=== PATIENT | male | born 1995 | race African-American/Black ===

== ENCOUNTER 2017-05-03 18:07 | Emergency (ER) | payer MEDICAID ==
[2017-05-03 18:22] VITALS: RESP 16; TEMP 98.6; O2SAT 96
--- NOTE | 2017-05-03 18:44 | EDPHY ---
H & P Stated Complaint: lac to right arm--punched glass door HPI/ROS: CHIEF COMPLAINT: Right forearm laceration HISTORY OF PRESENT ILLNESS: Patient says that he was knocking on the window when he accidentally broke the window and his arm went through it. He pulled his arm back in sustained a laceration on the right forearm, volar, midshaft. This happened around 1 hour ago. Mildly painful. No numbness or tingling. No pulsatile blood flow described. No pain at rest. No injuries elsewhere. Uncertain when his last tetanus shot was. He denies that this was with any attempt to harm himself. No other associated complaints or modifying factors TIME OF INJURY: Less than 1 hour prior to arrival TETANUS STATUS: Uncertain REVIEW OF SYSTEMS: Ten systems reviewed and are negative unless otherwise noted in the HPI EXAMINATION General Appearance: Alert, no distress Head: normocephalic, atraumatic Cardiovascular: Pulses normal throughout. Symmetric radial pulses are 2+. Brisk cap refill all fingers of the right hand. Neurological: A&O, sensory symmetric, strength symmetric. No wrist drop. Skin: Warm and dry, no rash. There is a macerated laceration on the right forearm, anterior aspect. Difficult to fully visualize due to hematoma and clot around it. We will need to irrigate and reinspected. Extremities: Mild tenderness of the right forearm laceration. There is no bony tenderness of the right hand, wrist, elbow or shoulder. Neurovascular intact distal to the laceration DIFFERENTIAL DIAGNOSES: Including but not limited to laceration, complex laceration, laceration with foreign body, arterial injury MDM: 6:45 p.m. Laceration to the right forearm, volar. Will need to irrigate the wound better for better visualization inspection. Unable to determine if there is a foreign body at this time until we irrigate the wound and explore further. X-ray has been ordered to rule out fracture and foreign body. He is neurovascular intact in no acute distress without any signs of arterial injury at this time 7:20 p.m. Wound has been anesthetized and irrigated. On re-evaluation of the wound, this is a jagged laceration with minimal exposure of the subcutaneous tissue. No large foreign body appreciated. No pulsatile blood flow. He remains neurovascular intact distal to the injury. I will close the wound. 7:45 p.m. Wound has been closed with good approximation. This was a jagged, v-shaped laceration. No foreign body. Neurovascular intact post procedure. Daily wound care as discussed. Return here for suture removal in 7-10 days. Return sooner for signs of infection should that develop as we discussed. PROCEDURE: Laceration repair Consent: Verbal Location: Right forearm, volar Length of repair: 5 cm total Complexity: Complex Layer involvement: Single layer Anesthesia: Local, 1% lidocaine with epinephrine, 10 mL Irrigation: Extensive Debridement: Minimal Procedure description: Following good anesthesia, the wound was copiously irrigated. Wound bed was explored and there is no foreign body noted. Minimal excisional debridement of the macerated edges. Wound borders were approximated well with good hemostasis. Tolerated well without complication. Suture/Staple material: 4-0 Prolene, 12 simple interrupted sutures Wound care: Routine as discussed Suture/Staple removal: 7-10 Days SUTURE STAPLE REMOVAL: 7-10 days here ED Precautions: Worsening pain. Erythema, edema, cyanosis, pallor, paresthesia or anesthesia. SUPERVISION: This patient was independently evaluated without direct examination by the attending physician. Case was discussed with attending physician. Source: Patient Exam Limitations: No limitations - Personal History Current Tetanus/Diphtheria Vaccine: No Current Tetanus Diphtheria and Acellular Pertussis (TDAP): No - Medical/Surgical History Hx Asthma: No Hx Chronic Respiratory Disease: No Hx Diabetes: No Hx Cardiac Disease: No Hx Renal Disease: No Hx Cirrhosis: No Hx Alcoholism: No Hx HIV/AIDS: No Hx Splenectomy or Spleen Trauma: No Other PMH: denies - Social History Smoking Status: Current every day smoker Constitutional: Initial Vital Signs Temperature (C) 98.6 F 05/03/17 18:20 Heart Rate 82 05/03/17 18:20 Respiratory Rate 16 05/03/17 18:20 Blood Pressure 128/76 H 05/03/17 18:20 O2 Sat (%) 96 05/03/17 18:20 O2 Delivery Mode Room Air Allergies/Adverse Reactions: No Known Allergies Allergy (Unverified 05/03/17 18:19) Home Medications: Medication Instructions Recorded Amoxicillin/Clavulanate Pot 875 mg PO BID #14 tab 05/03/17 [Augmentin 875 MG TAB (*)] Medical Decision Making - Diagnostics Imaging Results: Imaging Impressions Forearm X-Ray 05/03/17 18:44 Impression: Gauze bandaging limits assessment of the soft tissues. There is an equivocal punctate opacity near the skin surface seen peripheral medially. Clinical correlation is suggested. Departure - Departure Disposition: Home, Routine, Self-Care Clinical Impression: Laceration of forearm without complication Qualifiers: Encounter type: initial encounter Laterality: right Qualified Code(s): S51.811A - Laceration without foreign body of right forearm, initial encounter Condition: Good Instructions: Care For Your Stitches (ED), Laceration (ED) Additional Instructions: Daily wound care as discussed. Return here in 7-10 days for suture removal. Keep the wound clean, dry and covered. Augmentin as prescribed. Return here for any redness, purulence, swelling or pain Referrals: NONE *PRIMARY CARE P,. [Primary Care Provider] - As per Instructions Yang Turner MD [Medical Doctor] - As per Instructions Prescriptions: Amoxicillin/Clavulanate Pot [Augmentin 875 MG TAB (*)] 875 mg PO BID #14 tab
[2017-05-03] MEDS ORDERED: AMOXICILLIN/CLAVULANATE POT 875/125 MG TAB PO ONE (19:47)
[2017-05-03] MEDS ORDERED: ONDANSETRON 4 MG/2 ML VIAL ONE (19:57)
[2017-05-03 19:59] VITALS: BP 121/73; PULSE 70
== END 2017-05-03 19:59 | disposition home or self-care (01) ==
LOC: EEVIPCON 18:07
PROC: 0HQDXZZ Repair Right Lower Arm Skin, External Approach (ICD-10-PCS; principal; 2017-05-03)
DX: S51.811A Laceration without foreign body of right forearm, initial encounter (principal); F17.200 Nicotine dependence, unspecified, uncomplicated; W22.8XXA Striking against or struck by other objects, initial encounter; Y99.8 Other external cause status; Y93.89 Activity, other specified
CPT/HCPCS: J2405